=== PATIENT | male | born 1955 | race Caucasian/White ===

== ENCOUNTER 2016-05-12 12:57 | Emergency (ER) | payer MEDICARE ==
[~2016-05-12] VITALS: Ht 182.9 cm; Wt 145.5 kg
[~2016-05-12 12:57] MED LIST: MORP20SO PO; NAPR-576 PO
[2016-05-12 13:00] VITALS: BP 185/100; PULSE 89; RESP 18; TEMP 98.3; O2SAT 98
[2016-05-12] MEDS ORDERED: OXYC15TA PO (13:30)
[2016-05-12] MEDS ORDERED: QUET1TAB8 PO (13:30)
[2016-05-12] MEDS ORDERED: LORA1TAB12 PO (13:30)
[2016-05-12] MEDS ORDERED: HYDR50CA PO (13:30)
[2016-05-12] MEDS ORDERED: DOXE75CA2 PO (13:30)
[2016-05-12] MEDS ORDERED: LOSA100T PO (13:30)
--- NOTE | 2016-05-12 13:38 | PD ---
HPI Chief Complaint: Anxiety Time Seen by Provider: 13:38 Travel History International Travel<30 days: No Contact w/Intl Traveler<30days: No Traveled to known affect area: No History of Present Illness HPI 60-year-old male with a history of hypertension, chronic low back pain, anxiety and depression presents to the emergency department for evaluation of anxiety. The patient has had worsening anxiety for the past 6 months. States that he was seen by his PCP one month ago and referred to a psychiatrist, he was also prescribed Ativan 1 mg daily as needed for anxiety and Seroquel. States that he saw the psychiatrist 3 weeks ago and was started on doxepin, Vistaril and continued his Ativan and Seroquel. States that he saw the psychiatrist again today for evaluation of his worsening anxiety and was prescribed increased doses of his doxepin, Vistaril and Seroquel. The patient has not yet taken these increased doses of his medication. He is here because of his worsening anxiety, stating that he is unable to sleep for the past 24 hours. States he feels as though his skin is crawling due to his anxiety. He denies any chest pain, shortness of breath, abdominal pain, nausea, vomiting, diarrhea. Denies suicidal or homicidal ideations. No other complaints. PFSH Past Medical History Hx Anticoagulant Therapy: No Anxiety: Yes Depression: Yes Cancer: Yes (STOMACH ) Cerebrovascular Accident: Yes (CVA) Diminished Hearing: No Hypertension: Yes Insomnia: Yes Immunizations Current: Yes Tetanus Vaccination: > 5 Years Influenza Vaccination: No ?: Not Past Surgical History Abdominal Surgery: Yes (STOMACH CANCER--PORTION OF STOMACH REMOVED 05/30) Social History Alcohol Use: Yes (occasionally ) Tobacco Use: No (quit 10 years ago, smoked for 30 years) Substance Use: No Allergies-Medications (Allergen,Severity, Reaction): Coded Allergies: No Known Allergies (Unverified , 05/12/16) Reported Meds & Prescriptions Reported Meds & Active Scripts Active Reported Hydroxyzine Pamoate 50 Mg Cap 50 Mg PO HS Oxycodone (Oxycodone HCl) 15 Mg Tab 15 Mg PO Q6H PRN Losartan (Losartan Potassium) 100 Mg Tab 100 Mg PO DAILY Doxepin (Doxepin HCl) 75 Mg Cap 75 Mg PO DAILY Quetiapine (Quetiapine Fumarate) 100 Mg Tab 150 Mg PO DAILY Lorazepam 1 Mg Tab 1 Mg PO DAILY PRN Review of Systems Except as stated in HPI: all other systems reviewed are Neg Physical Exam Narrative GENERAL: Well-nourished and well-developed pleasant male patient in no acute distress who is nontoxic appearing. SKIN: Warm and dry. HEAD: Normocephalic and atraumatic. EYES: No injection, drainage, or hyphema noted. PERRLA. EOMI. ENT: No nasal drainage noted. Oropharynx is clear. NECK: Supple and the trachea is midline. CARDIOVASCULAR: Regular rate and rhythm. RESPIRATORY: Breath sounds are equal bilaterally with no accessory muscle use, wheezing, rhonchi, or crackles. GASTROINTESTINAL: Abdomen is soft, non-tender, and nondistended. MUSCULOSKELETAL: No obvious deformities, swelling, cyanosis, or ecchymosis is present throughout the upper and lower extremities. Patient has full range of motion without any signs of neurovascular compromise. NEUROLOGICAL: Awake, alert, and oriented. Normal speech and gait. Cranial nerves are grossly intact. Data Data Last Documented VS Vital Signs Date Time Temp Pulse Resp B/P Pulse Ox O2 Delivery O2 Flow Rate FiO2 05/12/16 14:20 90 22 176/108 97 Room Air 05/12/16 13:00 98.3 Orders Basic Metabolic Panel (Bmp) (05/12/16 13:36) Complete Blood Count With Diff (05/12/16 13:36) Iv Access Insert/Monitor (05/12/16 13:36) Ecg Monitoring (05/12/16 13:36) Oximetry (05/12/16 13:36) Lorazepam Inj (Ativan Inj) (05/12/16 13:45) Thyroid Stimulating Hormone (05/12/16 13:36) Lorazepam Inj (Ativan Inj) (05/12/16 14:00) Lorazepam Inj (Ativan Inj) (05/12/16 14:45) Labs Laboratory Tests Test 05/12/16 05/12/16 13:45 14:30 White Blood Count 9.4 TH/MM3 Red Blood Count 5.92 MIL/MM3 Hemoglobin 15.3 GM/DL Hematocrit 47.0 % Mean Corpuscular Volume 79.3 FL Mean Corpuscular Hemoglobin 25.9 PG Mean Corpuscular Hemoglobin 32.6 % Concent Red Cell Distribution Width 16.7 % Platelet Count 231 TH/MM3 Mean Platelet Volume 8.9 FL Neutrophils (%) (Auto) 68.4 % Lymphocytes (%) (Auto) 16.7 % Monocytes (%) (Auto) 7.6 % Eosinophils (%) (Auto) 6.5 % Basophils (%) (Auto) 0.8 % Neutrophils # (Auto) 6.4 TH/MM3 Lymphocytes # (Auto) 1.6 TH/MM3 Monocytes # (Auto) 0.7 TH/MM3 Eosinophils # (Auto) 0.6 TH/MM3 Basophils # (Auto) 0.1 TH/MM3 CBC Comment DIFF FINAL Differential Comment Sodium Level 139 MEQ/L Potassium Level 4.0 MEQ/L Chloride Level 103 MEQ/L Carbon Dioxide Level 30.3 MEQ/L Anion Gap 6 MEQ/L Blood Urea Nitrogen 9 MG/DL Creatinine 1.09 MG/DL Estimat Glomerular Filtration 69 ML/MIN Rate Random Glucose 111 MG/DL Calcium Level 9.0 MG/DL Thyroid Stimulating Hormone 0.962 uIU/ML [facility] Medical Decision Making Medical Screen Exam Complete: Yes Emergency Medical Condition: Yes Differential Diagnosis Anxiety versus depression versus hyperthyroidism versus electrolyte abnormality Narrative Course 60-year-old male presents to the emergency department for evaluation of worsening anxiety for the past 6 months. Patient is afebrile. He is hypertensive with a blood pressure 185/100. Anxiety likely contributing to this elevated blood pressure. Patient has no medical complaints. Physical examination is unremarkable. IV access is obtained, labs were drawn and sent. Patient is administered Ativan 1 mg. Patient still complaining of anxiety after initial dose and given another 1 mg of Ativan. CBC is unremarkable. BMP is unremarkable. TSH is within normal limits. Labs are all reassuring. Patient has remained stable and without complaint. He will be discharged to follow-up with his PCP and psychiatrist. I discussed the case with my attending physician Dr. Rocha who is aware of the patients history, physical examination findings, and treatment plan. Diagnosis Primary Impression: Anxiety Referrals: Primary Care Physician Patient Instructions: Anxiety (ED), General Instructions Additional Instructions: Follow-up with your Primary Care Physician and psychiatrist. Return to the ED for any acute worsening of symptoms. Med/Other Pt SpecificInfo: No Change to Meds Disposition: 01 DISCHARGE HOME Condition: Stable Jeannine Baltazar May 12, 2016 13:38
[2016-05-12] MEDS ORDERED: LORazepam 2 MG/ML VIAL IV PUSH ONE ×2 (13:45→14:45)
[2016-05-12 13:57] LABS: AUTOMATED NEUTROPHIL # 6.4 TH/MM3 (1.8-7.7); BASOPHIL # 0.1 TH/MM3 (0-0.2); BASOPHIL % 0.8 % (0.0-2.0); EOSINOPHIL # 0.6 TH/MM3 (0-0.4); EOSINOPHIL % 6.5 % (0.0-4.0); HEMO FLAGS DIFF FINAL; LYMPH % 16.7 % (9.0-44.0); LYMPHOCYTE # 1.6 TH/MM3 (1.0-4.8); MEAN CELL VOLUME 79.3 FL (80.0-100.0); MEAN CORPUSCULAR HEMOGLOBIN 25.9 PG (27.0-34.0); MEAN CORPUSCULAR HGB CONC 32.6 % (32.0-36.0); MONO % 7.6 % (0.0-8.0); NEUT % 68.4 % (16.0-70.0); PLATELET COUNT 231 TH/MM3 (150-450); RED BLOOD COUNT 5.92 MIL/MM3 (4.50-5.90); RED CELL DISTRIBUTION WIDTH 16.7 % (11.6-17.2); WHITE BLOOD COUNT 9.4 TH/MM3 (4.0-11.0)
[2016-05-12] MEDS ORDERED: LORazepam 2 MG/ML VIAL IM ONE (14:00)
[2016-05-12 14:19] VITALS: O2SAT 97
[2016-05-12 14:20] VITALS: BP 176/108; PULSE 90; RESP 22; O2SAT 97
--- NOTE | 2016-05-12 15:13 | PD ---
Physical Exam Narrative I, Dr. Rocha, have reviewed the advance practice practitioner's documentation and am in agreement, met with the patient face to face, made the diagnosis, and the medical decision making was done by me. *My assessment and Findings: Anxiety 60yo M with chronic anxiety and HTN here stating he is having an acute anxiety attack. Pt went to his psychiatrist today and had his medications increased. However, feels that he needs something intravenous right now. Labs reviewed, no leukocytosis. TSH 0.962. Pt given ativan 1mg IM and 1mg IV and feels better. Return precautions given. Data Data Last Documented VS Vital Signs Date Time Temp Pulse Resp B/P Pulse Ox O2 Delivery O2 Flow Rate FiO2 05/12/16 16:00 91 22 165/98 97 Room Air 05/12/16 13:00 98.3 Orders Basic Metabolic Panel (Bmp) (05/12/16 13:36) Complete Blood Count With Diff (05/12/16 13:36) Iv Access Insert/Monitor (05/12/16 13:36) Ecg Monitoring (05/12/16 13:36) Oximetry (05/12/16 13:36) Lorazepam Inj (Ativan Inj) (05/12/16 13:45) Thyroid Stimulating Hormone (05/12/16 13:36) Lorazepam Inj (Ativan Inj) (05/12/16 14:00) Lorazepam Inj (Ativan Inj) (05/12/16 14:45) Labs Laboratory Tests Test 05/12/16 05/12/16 13:45 14:30 White Blood Count 9.4 TH/MM3 Red Blood Count 5.92 MIL/MM3 Hemoglobin 15.3 GM/DL Hematocrit 47.0 % Mean Corpuscular Volume 79.3 FL Mean Corpuscular Hemoglobin 25.9 PG Mean Corpuscular Hemoglobin 32.6 % Concent Red Cell Distribution Width 16.7 % Platelet Count 231 TH/MM3 Mean Platelet Volume 8.9 FL Neutrophils (%) (Auto) 68.4 % Lymphocytes (%) (Auto) 16.7 % Monocytes (%) (Auto) 7.6 % Eosinophils (%) (Auto) 6.5 % Basophils (%) (Auto) 0.8 % Neutrophils # (Auto) 6.4 TH/MM3 Lymphocytes # (Auto) 1.6 TH/MM3 Monocytes # (Auto) 0.7 TH/MM3 Eosinophils # (Auto) 0.6 TH/MM3 Basophils # (Auto) 0.1 TH/MM3 CBC Comment DIFF FINAL Differential Comment Sodium Level 139 MEQ/L Potassium Level 4.0 MEQ/L Chloride Level 103 MEQ/L Carbon Dioxide Level 30.3 MEQ/L Anion Gap 6 MEQ/L Blood Urea Nitrogen 9 MG/DL Creatinine 1.09 MG/DL Estimat Glomerular Filtration 69 ML/MIN Rate Random Glucose 111 MG/DL Calcium Level 9.0 MG/DL Thyroid Stimulating Hormone 0.962 uIU/ML 3rd Gen MDM Supervised Visit with [facility]: Yes Diagnosis Primary Impression: Anxiety Referrals: Primary Care Physician Patient Instructions: General Instructions, Anxiety (ED) Additional Instruction: Follow-up with your Primary Care Physician and psychiatrist. Return to the ED for any acute worsening of symptoms. Disposition: 01 DISCHARGE HOME Condition: Stable Julia Rocha May 12, 2016 15:13
[2016-05-12 15:29] LABS: BICARBONATE 30.3 MEQ/L (21.0-32.0)
[2016-05-12 16:00] VITALS: BP 165/98; PULSE 91; RESP 22; O2SAT 97
== END 2016-05-12 16:00 | disposition home or self-care (01) ==
LOC: NEPE 12:57
DX: F41.8 Other specified anxiety disorders (principal); I10 Essential (primary) hypertension; Z86.73 Personal history of transient ischemic attack (TIA), and cerebral infarction without residual deficits
CPT/HCPCS: 80048; 84443; 85025; 99283; J2060

== ENCOUNTER 2016-07-02 18:50 | Emergency (ER) | payer MEDICARE ==
[~2016-07-02] VITALS: Ht 182.9 cm; Wt 144.9 kg
[~2016-07-02 18:50] MED LIST changes: +DOXE75CA2 PO; +HYDR50CA PO; +LORA1TAB12 PO; +LOSA100T PO; -MORP20SO PO; -NAPR-576 PO; +OXYC15TA PO; +QUET1TAB8 PO
[2016-07-02 18:59] VITALS: BP 126/86; PULSE 87; RESP 16; TEMP 97.9; O2SAT 97
[2016-07-02] MEDS ORDERED: TAMS5CAP PO (19:12)
[2016-07-02] MEDS ORDERED: SERO25TA PO (19:12)
[2016-07-02] MEDS ORDERED: ZOLO50TA PO (19:13)
[2016-07-02 19:25] VITALS: BP 148/85; PULSE 90; O2SAT 99
[2016-07-02] MEDS ORDERED: SODIUM CHLOR 0.9% 1000 ML INJ 1,000 ML IV SCH ×2 (19:29→20:30)
[2016-07-02] MEDS ORDERED: SODIUM CHLORIDE 0.9% FLUSH 10 ML FLUSH IV FLUSH PRN (19:30)
[2016-07-02] MEDS ORDERED: ONDANSETRON HCL 4 MG/2 ML VIAL IVP ONE (19:30)
--- NOTE | 2016-07-02 19:36 | PD ---
HPI Chief Complaint: GI Complaint Time Seen by Provider: 19:29 Travel History International Travel<30 days: No Contact w/Intl Traveler<30days: No Traveled to known affect area: No History of Present Illness HPI The patient is a 60-year-old male who complains of generalized weakness and diarrhea for 5 days. He denies any nausea or vomiting or fever. He denies any blood in the diarrhea. He denies any abdominal pain. He has had a history of stomach cancer 5 years ago and also had a small bowel obstruction in which they removed some small intestine. He also has a history of anxiety and depression and takes oxycodone chronically for chronic pain. PFSH Past Medical History Hx Anticoagulant Therapy: No Anxiety: Yes Depression: Yes Cancer: Yes (STOMACH ) Cerebrovascular Accident: Yes (CVA) Diminished Hearing: No Hypertension: Yes Insomnia: Yes Immunizations Current: Yes Tetanus Vaccination: Never Vaccinated Past Surgical History Abdominal Surgery: Yes (STOMACH CANCER--PORTION OF STOMACH REMOVED 05/30) Other Surgery: Yes (spinal stenosis august 2015) Social History Alcohol Use: Yes (occasionally ) Tobacco Use: No (quit 10 years ago, smoked for 30 years) Substance Use: No Allergies-Medications (Allergen,Severity, Reaction): Coded Allergies: No Known Allergies (Unverified , 07/02/16) Reported Meds & Prescriptions Reported Meds & Active Scripts Active Reported Zoloft (Sertraline HCl) 50 Mg Tab 50 Mg PO DAILY Flomax (Tamsulosin HCl) 0.4 Mg Cap 0.4 Mg PO HS Seroquel (Quetiapine Fumarate) 25 Mg Tab 25 Mg PO HS Oxycodone (Oxycodone HCl) 15 Mg Tab 15 Mg PO Q6H PRN Losartan (Losartan Potassium) 100 Mg Tab 100 Mg PO DAILY Lorazepam 1 Mg Tab 1 Mg PO DAILY PRN Review of Systems Except as stated in HPI: all other systems reviewed are Neg Physical Exam Narrative GENERAL: The patient is alert, moderately dehydrated appearing, oriented 3 in slight apparent distress with his nausea. His vital signs show blood pressure 126/86 but otherwise normal. SKIN: Focused skin assessment warm/dry. HEAD: Atraumatic. Normocephalic. EYES: Pupils equal and round. No scleral icterus. No injection or drainage. ENT: No nasal bleeding or discharge. Mucous membranes pink and moist. NECK: Trachea midline. No JVD. CARDIOVASCULAR: Regular rate and rhythm. No murmur appreciated. RESPIRATORY: No accessory muscle use. Clear to auscultation. Breath sounds equal bilaterally. GASTROINTESTINAL: Abdomen soft, non-tender, nondistended. Hepatic and splenic margins not palpable. No guarding or rebound is present. MUSCULOSKELETAL: No obvious deformities. No clubbing. No cyanosis. No edema. NEUROLOGICAL: Awake and alert. No obvious cranial nerve deficits. Motor grossly within normal limits. Normal speech. PSYCHIATRIC: Appropriate mood and affect; insight and judgment normal. Data Data Last Documented VS Vital Signs Date Time Temp Pulse Resp B/P Pulse Ox O2 Delivery O2 Flow Rate FiO2 07/02/16 21:00 84 152/87 100 07/02/16 19:25 Room Air 07/02/16 18:59 97.9 16 Orders Complete Blood Count With Diff (07/02/16 19:29) Comprehensive Metabolic Panel (07/02/16 19:29) Lipase (07/02/16 19:29) Urinalysis - C+S If Indicated (07/02/16 19:29) Iv Access Insert/Monitor (07/02/16 19:29) Ecg Monitoring (07/02/16 19:29) Oximetry (07/02/16 19:29) Sodium Chlor 0.9% 1000 Ml Inj (Ns 1000 M (07/02/16 19:29) Sodium Chloride 0.9% Flush (Ns Flush) (07/02/16 19:30) Urine Culture (07/02/16 19:56) Sodium Chlor 0.9% 1000 Ml Inj (Ns 1000 M (07/02/16 20:30) Labs Laboratory Tests Test 07/02/16 07/02/16 19:56 19:58 Urine Color YELLOW Urine Turbidity CLEAR Urine pH 6.0 Urine Specific [place] 1.030 Urine Protein 30 mg/dL Urine Glucose (UA) NEG mg/dL Urine Ketones TRACE mg/dL Urine Occult Blood TRACE Urine Nitrite NEG Urine Bilirubin NEG Urine Leukocyte Esterase TRACE Urine RBC 0-3 /hpf Urine WBC 9-14 /hpf Urine Squamous Epithelial 0-5 /hpf Cells Urine Bacteria RARE /hpf Urine Mucus MANY /lpf Microscopic Urinalysis Comment CULTURE INDICATED White Blood Count 9.5 TH/MM3 Red Blood Count 6.59 MIL/MM3 Hemoglobin 17.2 GM/DL Hematocrit 54.0 % Mean Corpuscular Volume 81.9 FL Mean Corpuscular Hemoglobin 26.1 PG Mean Corpuscular Hemoglobin 31.9 % Concent Red Cell Distribution Width 14.6 % Platelet Count 269 TH/MM3 Mean Platelet Volume 9.2 FL Neutrophils (%) (Auto) 70.3 % Lymphocytes (%) (Auto) 15.0 % Monocytes (%) (Auto) 9.4 % Eosinophils (%) (Auto) 2.1 % Basophils (%) (Auto) 3.2 % Neutrophils # (Auto) 6.7 TH/MM3 Lymphocytes # (Auto) 1.4 TH/MM3 Monocytes # (Auto) 0.9 TH/MM3 Eosinophils # (Auto) 0.2 TH/MM3 Basophils # (Auto) 0.3 TH/MM3 CBC Comment DIFF FINAL Differential Comment Sodium Level 139 MEQ/L Potassium Level 3.6 MEQ/L Chloride Level 104 MEQ/L Carbon Dioxide Level 24.5 MEQ/L Anion Gap 11 MEQ/L Blood Urea Nitrogen 16 MG/DL Creatinine 1.10 MG/DL Estimat Glomerular Filtration 68 ML/MIN Rate Random Glucose 117 MG/DL Calcium Level 8.5 MG/DL Total Bilirubin 0.6 MG/DL Aspartate Amino Transf 16 U/L (AST/SGOT) Alanine Aminotransferase 40 U/L (ALT/SGPT) Alkaline Phosphatase 84 U/L Total Protein 8.4 GM/DL Albumin 3.7 GM/DL Lipase 75 U/L MDM Medical Decision Making Medical Screen Exam Complete: Yes Emergency Medical Condition: Yes Medical Record Reviewed: Yes Interpretation(s) The CBC shows a white count of 9500 with a hemoglobin of 17.2 and hematocrit of 54.0. The urine shows specific gravity 1.030 with trace ketones, trace occult blood and trace leukocyte esterase with 9-14 white cells and rare bacteria and culture is indicated. The complete metabolic profile shows a total protein of 8.4 but is otherwise normal. The lipase is normal. Differential Diagnosis Gastroenteritis, partial small bowel obstruction, electrolyte disorder, dehydration, anemia, colitis, bacterial enteritis Narrative Course The patient appears to have gastroenteritis with moderate dehydration. Dehydration as manifested by the hemoconcentration with a hemoglobin/hematocrit on the CBC and in the urine by the high specific gravity and ketones in the urine. It is now 0928 and the patient has successfully been drinking Gatorade and wants to go home. He states he feels much better now and the weakness has resolved. Impression: Gastroenteritis, moderate dehydration Diagnosis Primary Impression: Gastroenteritis Additional Impression: Mild dehydration Additional Instructions: The Zofran is one tablet every 6 hours as needed for nausea. As we discussed, do not purchase the medicine unless you get nauseated. Follow-up with her primary care physician next week. Med/Other Pt SpecificInfo: Prescription(s) given Scripts Ondansetron (Zofran)4 Mg Tab4 Mg PO Q6HR PRN (NAUSEA OR VOMITING) #12 TAB Ref 0 Prov:Og Momin MD 07/02/16 Disposition: 01 DISCHARGE HOME Condition: Stable Og Momin MD Jul 02, 2016 19:36
[2016-07-02 20:04] LABS: AUTOMATED NEUTROPHIL # 6.7 TH/MM3 (1.8-7.7); BASOPHIL # 0.3 TH/MM3 (0-0.2); BASOPHIL % 3.2 % (0.0-2.0); EOSINOPHIL # 0.2 TH/MM3 (0-0.4); EOSINOPHIL % 2.1 % (0.0-4.0); HEMO FLAGS DIFF FINAL; LYMPHOCYTE # 1.4 TH/MM3 (1.0-4.8); MEAN CELL VOLUME 81.9 FL (80.0-100.0); MEAN CORPUSCULAR HEMOGLOBIN 26.1 PG (27.0-34.0); MEAN CORPUSCULAR HGB CONC 31.9 % (32.0-36.0); MONO % 9.4 % (0.0-8.0); NEUT % 70.3 % (16.0-70.0); PLATELET COUNT 269 TH/MM3 (150-450); RED BLOOD COUNT 6.59 MIL/MM3 (4.50-5.90); RED CELL DISTRIBUTION WIDTH 14.6 % (11.6-17.2); WHITE BLOOD COUNT 9.5 TH/MM3 (4.0-11.0)
[2016-07-02 20:06] LABS: BLOOD, URINE TRACE (NEG); GLUCOSE,URINE NEG (NEG); KETONE, URINE TRACE mg/dL (NEG); NITRITE,URINE NEG (NEG)
[2016-07-02 20:09] LABS: URINE COLOR YELLOW (YELLW/STRAW)
[2016-07-02 20:10] LABS: MUCUS URINE MANY /lpf (OCC)
[2016-07-02 20:11] LABS: RBC, URINE 0-3 /hpf (0-3)
[2016-07-02 20:12] LABS: BACTERIA, URINE RARE /hpf; COMMENT (UR) CULTURE INDICATED; CULTURE IF INDICATED CULTURE INDICATED; SQUAMOUS EPITHELIAL CELL URINE 0-5 /hpf (0-5)
[2016-07-02 20:15] LABS: CHLORIDE 104 MEQ/L (98-107); POTASSIUM 3.6 MEQ/L (3.5-5.1); SODIUM (NA) 139 MEQ/L (136-145)
[2016-07-02 20:21] LABS: ANION GAP 11 MEQ/L (5-15); BICARBONATE 24.5 MEQ/L (21.0-32.0); BLOOD UREA NITROGEN 16 MG/DL (7-18)
[2016-07-02 20:23] LABS: ALT (GPT) 40 U/L (12-78); AST (GOT) 16 U/L (15-37)
[2016-07-02 20:24] LABS: GLOMERULAR FILTRATION RATE 68 ML/MIN (>89)
[2016-07-02 20:25] LABS: TOTAL BILIRUBIN ADULT 0.6 MG/DL (0.2-1.0)
[2016-07-02 20:26] LABS: ALKALINE PHOSPHATASE 84 U/L (45-117)
[2016-07-02 21:00] VITALS: BP 152/87; PULSE 84; O2SAT 100
[2016-07-02] MEDS ORDERED: ZOFR4TAB PO (21:30)
== END 2016-07-02 21:42 | disposition home or self-care (01) ==
LOC: PHED 18:50
DX: K52.9 Noninfective gastroenteritis and colitis, unspecified (principal); E86.0 Dehydration; I10 Essential (primary) hypertension; F41.8 Other specified anxiety disorders
CPT/HCPCS: 80053; 81001; 83690; 85025; 87086; 96360; 99284; J7030

== ENCOUNTER 2016-08-04 17:40 | Emergency (ER) | payer MEDICARE ==
[~2016-08-04] VITALS: Ht 182.9 cm; Wt 146.6 kg
[~2016-08-04 17:40] MED LIST changes: -DOXE75CA2 PO; -HYDR50CA PO; -QUET1TAB8 PO; +SERO25TA PO; +TAMS5CAP PO; +ZOFR4TAB PO; +ZOLO50TA PO
[2016-08-04 17:43] VITALS: PULSE 87; RESP 16; TEMP 97.8; O2SAT 98
[2016-08-04 17:50] VITALS: BP 196/95
[2016-08-04] MEDS ORDERED: SODIUM CHLOR 0.9% 1000 ML INJ 1,000 ML IV ONE (18:30)
[2016-08-04 18:41] VITALS: BP 174/110; PULSE 88; RESP 16; O2SAT 98
[2016-08-04 18:43] LABS: BLOOD, URINE TRACE (NEG); GLUCOSE,URINE NEG (NEG); KETONE, URINE NEG (NEG); NITRITE,URINE NEG (NEG)
[2016-08-04 18:45] LABS: AUTOMATED NEUTROPHIL # 6.8 TH/MM3 (1.8-7.7); BASOPHIL # 0.1 TH/MM3 (0-0.2); BASOPHIL % 0.6 % (0.0-2.0); EOSINOPHIL % 10.1 % (0.0-4.0); HEMATOCRIT 48.1 % (39.0-51.0); HEMO FLAGS DIFF FINAL; LYMPH % 13.3 % (9.0-44.0); LYMPHOCYTE # 1.4 TH/MM3 (1.0-4.8); MEAN CELL VOLUME 81.9 FL (80.0-100.0); MEAN CORPUSCULAR HEMOGLOBIN 26.4 PG (27.0-34.0); MEAN CORPUSCULAR HGB CONC 32.2 % (32.0-36.0); MONO % 8.4 % (0.0-8.0); NEUT % 67.6 % (16.0-70.0); PLATELET COUNT 217 TH/MM3 (150-450); RED BLOOD COUNT 5.87 MIL/MM3 (4.50-5.90); RED CELL DISTRIBUTION WIDTH 15.2 % (11.6-17.2); WHITE BLOOD COUNT 10.2 TH/MM3 (4.0-11.0)
[2016-08-04 18:49] LABS: CHLORIDE 104 MEQ/L (98-107); POTASSIUM 3.4 MEQ/L (3.5-5.1); SODIUM (NA) 140 MEQ/L (136-145)
[2016-08-04] MEDS ORDERED: DIATRIZOATE MEGLUM/DIATRIZOATE SOD 9 ML CUP ONE (18:52)
[2016-08-04 18:53] LABS: ANION GAP 7 MEQ/L (5-15); BICARBONATE 29.5 MEQ/L (21.0-32.0); BLOOD UREA NITROGEN 9 MG/DL (7-18)
[2016-08-04 18:56] LABS: ALT (GPT) 23 U/L (12-78); AST (GOT) 13 U/L (15-37); GLOMERULAR FILTRATION RATE 81 ML/MIN (>89)
[2016-08-04 18:57] LABS: TOTAL BILIRUBIN ADULT 0.3 MG/DL (0.2-1.0)
[2016-08-04 18:58] LABS: ALKALINE PHOSPHATASE 99 U/L (45-117)
[2016-08-04 18:58] LABS: URINE COLOR YELLOW (YELLW/STRAW)
[2016-08-04 18:59] LABS: MUCUS URINE OCC /lpf (OCC); URIC ACID CRYSTALS, URINE MANY /hpf
[2016-08-04 19:00] VITALS: BP 183/98; PULSE 85; RESP 18; O2SAT 98
[2016-08-04 19:00] LABS: HYALINE CAST, URINE 0-2 /lpf (RARE)
[2016-08-04 19:01] LABS: COMMENT (UR) CULT NOT INDICATED; CULTURE IF INDICATED CULT NOT INDICATED; RBC, URINE 0-3 /hpf (0-3); SQUAMOUS EPITHELIAL CELL URINE 0-5 /hpf (0-5)
[2016-08-04] MEDS ORDERED: ONDANSETRON HCL 4 MG/2 ML VIAL IV PUSH ONE (19:15)
[2016-08-04] MEDS ORDERED: HYDROmorphone HCL PF 1 MG/ML VIAL IV PUSH ONE (19:15)
[2016-08-04] MEDS ORDERED: POTASSIUM CHLORIDE 20 MEQ CONTROLLED RELEASE TAB PO ONE (19:30)
--- NOTE | 2016-08-04 19:31 | PD ---
HPI Chief Complaint: GI Complaint Time Seen by Provider: 18:11 Travel History International Travel<30 days: No Contact w/Intl Traveler<30days: No Traveled to known affect area: No History of Present Illness HPI This 60-year-old male says he been having diarrhea last 3 or 4 days. He's having crampy migratory abdominal pain. He says that 3 movements today. He says his stools are foamy and very watery. 6 years ago he had surgery for stomach cancer. He goes for periodic endoscopies and is scheduled for an endoscopy with Dr. Winston on Wednesday. He has not been on any antibiotics recently. One month ago he had some diarrhea and came to the emergency department. Lab work was done and was diagnosed with dehydration. He was given some fluids and Zofran and he seemed to get better for a couple of weeks. He feels like he is having symptoms again now. He has a history of partial colon resection for diverticulitis over 20 years ago. He has a history of spinal fusion. He is on chronic pain medication. He has problems with chronic reflux because he says his lower esophageal sphincter is not functional PFSH Past Medical History Hx Anticoagulant Therapy: No Anxiety: Yes Depression: Yes Cancer: Yes (STOMACH ) Cardiovascular Problems: Yes (HTN) Cerebrovascular Accident: Yes (CVA) Diabetes: No Diminished Hearing: No Hypertension: Yes Insomnia: Yes Immunizations Current: Yes Influenza Vaccination: No Past Surgical History Abdominal Surgery: Yes (STOMACH CANCER--PORTION OF STOMACH REMOVED 05/30) Other Surgery: Yes (spinal stenosis august 2015) Social History Alcohol Use: Yes (occasionally ) Tobacco Use: No (quit 10 years ago, smoked for 30 years) Substance Use: No Allergies-Medications (Allergen,Severity, Reaction): Coded Allergies: No Known Allergies (Unverified , 08/04/16) Reported Meds & Prescriptions Reported Meds & Active Scripts Active Reported Zoloft (Sertraline HCl) 50 Mg Tab 50 Mg PO DAILY Flomax (Tamsulosin HCl) 0.4 Mg Cap 0.4 Mg PO HS Seroquel (Quetiapine Fumarate) 25 Mg Tab 25 Mg PO HS Oxycodone (Oxycodone HCl) 15 Mg Tab 15 Mg PO Q6H PRN Losartan (Losartan Potassium) 100 Mg Tab 100 Mg PO DAILY Lorazepam 1 Mg Tab 2 Mg PO DAILY PRN Review of Systems General / Constitutional: No: Fever, Chills Eyes: No: Diploplia, Blurred Vision HENT: No: Headaches, Vertigo Cardiovascular: No: Chest Pain or Discomfort, Palpitations Respiratory: No: Cough, Shortness of Breath Gastrointestinal: Positive: Diarrhea, Abdominal Pain, Loss of Appetite, No: Vomiting Genitourinary: No: Urgency, Frequency Physical Exam Narrative GENERAL: Well-developed male SKIN: Focused skin assessment warm/dry. HEAD: Atraumatic. Normocephalic. EYES: Pupils equal and round. No scleral icterus. No injection or drainage. ENT: No nasal bleeding or discharge. Mucous membranes pink and moist. NECK: Trachea midline. No JVD. CARDIOVASCULAR: Regular rate and rhythm. No murmur appreciated. RESPIRATORY: No accessory muscle use. Clear to auscultation. Breath sounds equal bilaterally. GASTROINTESTINAL: Abdomen soft, non-tender, nondistended. Hepatic and splenic margins not palpable. MUSCULOSKELETAL: No obvious deformities. No clubbing. No cyanosis. No edema. NEUROLOGICAL: Awake and alert. No obvious cranial nerve deficits. Motor grossly within normal limits. Normal speech. PSYCHIATRIC: Appropriate mood and affect; insight and judgment normal. Data Data Last Documented VS Vital Signs Date Time Temp Pulse Resp B/P Pulse Ox O2 Delivery O2 Flow Rate FiO2 08/04/16 20:30 77 18 195/99 99 Room Air 08/04/16 17:43 97.8 Orders Complete Blood Count With Diff (08/04/16 18:21) Comprehensive Metabolic Panel (08/04/16 18:21) Urinalysis - C+S If Indicated (08/04/16 18:21) Rotavirus Ag Detection (Stool) (08/04/16 18:21) Enteric Path (Stool) (08/04/16 18:21) C Diff Toxin Pcr (08/04/16 18:21) Ct Abd/Pel W Iv Contrast(Rout) (08/04/16 18:21) Sodium Chlor 0.9% 1000 Ml Inj (Ns 1000 M (08/04/16 18:30) Diatrizoate Liq ( Gastroview Liq) (08/04/16 18:52) Ondansetron Inj (Zofran Inj) (08/04/16 19:15) Hydromorphone Pf Inj (Dilaudid Pf Inj) (08/04/16 19:15) Potassium Chloride (Kcl) (08/04/16 19:30) Iohexol 350 Inj (Omnipaque 350 Inj) (08/04/16 20:39) Labs Laboratory Tests Test 08/04/16 08/04/16 18:20 18:30 White Blood Count 10.2 TH/MM3 Red Blood Count 5.87 MIL/MM3 Hemoglobin 15.5 GM/DL Hematocrit 48.1 % Mean Corpuscular Volume 81.9 FL Mean Corpuscular Hemoglobin 26.4 PG Mean Corpuscular Hemoglobin 32.2 % Concent Red Cell Distribution Width 15.2 % Platelet Count 217 TH/MM3 Mean Platelet Volume 9.3 FL Neutrophils (%) (Auto) 67.6 % Lymphocytes (%) (Auto) 13.3 % Monocytes (%) (Auto) 8.4 % Eosinophils (%) (Auto) 10.1 % Basophils (%) (Auto) 0.6 % Neutrophils # (Auto) 6.8 TH/MM3 Lymphocytes # (Auto) 1.4 TH/MM3 Monocytes # (Auto) 0.9 TH/MM3 Eosinophils # (Auto) 1.0 TH/MM3 Basophils # (Auto) 0.1 TH/MM3 CBC Comment DIFF FINAL Differential Comment Sodium Level 140 MEQ/L Potassium Level 3.4 MEQ/L Chloride Level 104 MEQ/L Carbon Dioxide Level 29.5 MEQ/L Anion Gap 7 MEQ/L Blood Urea Nitrogen 9 MG/DL Creatinine 0.95 MG/DL Estimat Glomerular Filtration 81 ML/MIN Rate Random Glucose 113 MG/DL Calcium Level 8.8 MG/DL Total Bilirubin 0.3 MG/DL Aspartate Amino Transf 13 U/L (AST/SGOT) Alanine Aminotransferase 23 U/L (ALT/SGPT) Alkaline Phosphatase 99 U/L Total Protein 7.5 GM/DL Albumin 3.2 GM/DL Urine Color YELLOW Urine Turbidity CLEAR Urine pH 5.0 Urine Specific [place] 1.018 Urine Protein NEG mg/dL Urine Glucose (UA) NEG mg/dL Urine Ketones NEG mg/dL Urine Occult Blood TRACE Urine Nitrite NEG Urine Bilirubin NEG Urine Leukocyte Esterase NEG Urine RBC 0-3 /hpf Urine Squamous Epithelial 0-5 /hpf Cells Urine Uric Acid Crystals MANY /hpf Urine Hyaline Casts 0-2 /lpf Urine Mucus OCC /lpf Microscopic Urinalysis Comment CULT NOT INDICATED MDM Medical Decision Making Medical Screen Exam Complete: Yes Emergency Medical Condition: Yes Medical Record Reviewed: Yes Differential Diagnosis Differential includes enteritis, colitis, diverticulitis Narrative Course White count is normal. I requested stool studies but he was unable to produce stool. CT scan shows some focal thickening of the colon consistent with colitis. He'll be started on Flagyl. She has an appointment Wednesday with Dr. Winston and he should follow-up with him Diagnosis Primary Impression: Colitis Scripts Metronidazole (Flagyl)500 Mg Pso738 Mg PO TID 10 Days Ref 0 Prov:Terrell Yang MD 08/04/16 Ondansetron (Zofran)4 Mg Tab4 Mg PO Q6HR PRN (NAUSEA OR VOMITING) #12 TAB Ref 0 Prov:Terrell Yang MD 08/04/16 Disposition: 01 DISCHARGE HOME Condition: Stable Terrell Yang MD August 04, 2016 19:31
[2016-08-04 20:30] VITALS: BP 195/99; PULSE 77; RESP 18; O2SAT 99
[2016-08-04] MEDS ORDERED: IOHEXOL 350 MG/ML 10 ML VIAL (for RAD DIAG) IV ONE (20:39)
--- NOTE | 2016-08-04 20:50 | RADHPO ---
EXAM DATE/TIME: 08/04/2016 20:11 [place] COMPARISON: No previous studies available for comparison. INDICATIONS : Abdominal pain. Diarrhea. IV CONTRAST: 100 cc Omnipaque 350 (iohexol) IV ORAL CONTRAST: Partial prescribed oral contrast ingested. RADIATION DOSE: 26.83 CTDIvol (mGy) MEDICAL HISTORY : Carcinoma, gastric. Hypertension. Cerebrovascular disease. SURGICAL HISTORY : Portion of stomach removed. ENCOUNTER: Initial ACUITY: 2 days PAIN SCALE: 7/10 LOCATION: Bilateral lower quadrant upper quadrant TECHNIQUE: Volumetric scanning of the abdomen and pelvis was performed. Using automated exposure control and ad justment of the mA and/or kV according to patient size, radiation dose was kept as low as reasonably achievable to obtain optimal diagnostic quality images. FINDINGS: Lung bases and minimal scarring. Mild fatty liver with multiple small hepatic cysts. Spleen, adrenals , kidneys and pancreas unremarkable. No gallstones or biliary ductal dilatation. Stomach is mildly di stended. There is some mild mural thickening of the left-sided transverse colon and left colon is characterist ic of a mild colitis. No free fluid or free air. No bowel obstruction. There is previous fusion across the lumbosacral junc tion. No acute bony abnormalities. CONCLUSION: 1. Mild mural thickening of the left colon is characteristic of a mild colitis. Colonic diverticula a re also present. 2. No obstruction, free fluid or free air. Previous fusion lower lumbar spine. Mild fatty liver. To Hanson MD on August 04, 2016 at 20:39 Board Certified Radiologist. This report was verified electronically.
[2016-08-04] MEDS ORDERED: METR-1 PO (21:18)
[2016-08-04] MEDS ORDERED: ZOFR4TAB PO (21:18)
[2016-08-04 21:30] VITALS: BP 169/91
== END 2016-08-04 21:33 | disposition home or self-care (01) ==
LOC: PHED 17:40
DX: K52.9 Noninfective gastroenteritis and colitis, unspecified (principal); F41.9 Anxiety disorder, unspecified; K57.92 Diverticulitis of intestine, part unspecified, without perforation or abscess without bleeding; F32.9 Major depressive disorder, single episode, unspecified; I10 Essential (primary) hypertension; Z86.73 Personal history of transient ischemic attack (TIA), and cerebral infarction without residual deficits; Z85.028 Personal history of other malignant neoplasm of stomach; Z79.899 Other long term (current) drug therapy; Z87.891 Personal history of nicotine dependence
CPT/HCPCS: 74177; 80053; 81001; 85025; 96361; 96374; 96375; 99284; J1170; J2405; J7030; Q9963; Q9967

== ENCOUNTER 2017-03-03 13:11 | Emergency (ER) | payer MEDICARE ==
[~2017-03-03] VITALS: Ht 182.9 cm; Wt 159.2 kg
[~2017-03-03 13:11] MED LIST changes: +METR-1 PO
[2017-03-03 13:18] VITALS: BP 189/89; PULSE 74; RESP 16; TEMP 98.4; O2SAT 96
[2017-03-03] MEDS ORDERED: HYDR12.57 PO (13:35)
[2017-03-03] MEDS ORDERED: PANT40TA3 PO (13:36)
[2017-03-03] MEDS ORDERED: EDAR40TA PO (13:36)
[2017-03-03] MEDS ORDERED: TERA5CAP3 PO (13:36)
[2017-03-03] MEDS ORDERED: DIAZEPAM 10 MG TAB PO ONE (14:00)
--- NOTE | 2017-03-03 14:03 | PD ---
HPI Chief Complaint: Anxiety Time Seen by Provider: 13:46 Travel History International Travel<30 days: No Contact w/Intl Traveler<30days: No Traveled to known affect area: No History of Present Illness HPI This 61-year-old male is complaining of anxiety. He says he has not been sleeping well for some time. He has a lot of medical issues. About 6 years ago he had removal of half the stomach for stomach cancer he's had follow-up which has been negative. He had a spinal fusion 20 years ago he has a lot of chronic pain. He is on oxycodone 30 mg 3 times a day. He has had anxiety for some time. He is very nervous and is on Ativan. He has not slept well for a long time. He has tried multiple sleeping pills. He is also seen a psychiatrist and has tried multiple medications from them without response. He has noted that his been a bit short of breath with minimal exertion recently. He has quite heavy and has been told he needs to lose weight. He has not had fever or chills. He has no history of heart disease. He stopped smoking 10 years ago PFSH Past Medical History Hx Anticoagulant Therapy: No Anxiety: Yes Depression: Yes Cancer: Yes (STOMACH ) Cardiovascular Problems: Yes (htn on meds) Cerebrovascular Accident: Yes (CVA) Diabetes: No Diminished Hearing: No Hypertension: Yes Insomnia: Yes Immunizations Current: Yes Past Surgical History Abdominal Surgery: Yes (STOMACH CANCER--PORTION OF STOMACH REMOVED 05/30) Other Surgery: Yes (spinal stenosis august 2015) Social History Alcohol Use: Yes (occasionally ) Tobacco Use: No (quit 10 years ago, smoked for 30 years) Substance Use: No Allergies-Medications (Allergen,Severity, Reaction): Coded Allergies: No Known Allergies (Unverified Allergy, Unknown, 03/03/17) Reported Meds & Prescriptions Reported Meds & Active Scripts Active Reported Edarbi (Azilsartan) 40 Mg Tab 40 Mg PO DAILY Terazosin (Terazosin HCl) 5 Mg Cap 5 Mg PO HS Pantoprazole (Pantoprazole Sodium) 40 Mg Tab 40 Mg PO DAILY Hydrochlorothiazide 12.5 Mg Cap 12.5 Mg PO DAILY Zoloft (Sertraline HCl) 50 Mg Tab 150 Mg PO DAILY Losartan (Losartan Potassium) 100 Mg Tab 100 Mg PO DAILY Lorazepam 1 Mg Tab 2 Mg PO DAILY PRN Review of Systems General / Constitutional: No: Fever, Chills Eyes: No: Diploplia, Blurred Vision HENT: No: Headaches Cardiovascular: No: Chest Pain or Discomfort Respiratory: Positive: Shortness of Breath Gastrointestinal: No: Vomiting, Diarrhea Genitourinary: No: Urgency, Frequency Musculoskeletal: Positive: Myalgias Skin: No Rash Neurologic: Positive: Weakness Psychiatric: Positive: Anxiety Hematologic/Lymphatic: No: Easy Bruising Physical Exam Narrative GENERAL: Well-developed male somewhat obese SKIN: Focused skin assessment warm/dry. HEAD: Atraumatic. Normocephalic. EYES: Pupils equal and round. No scleral icterus. No injection or drainage. ENT: No nasal bleeding or discharge. Mucous membranes pink and moist. NECK: Trachea midline. No JVD. CARDIOVASCULAR: Regular rate and rhythm. No murmur appreciated. RESPIRATORY: No accessory muscle use. Clear to auscultation. Breath sounds equal bilaterally. GASTROINTESTINAL: Abdomen soft, non-tender, nondistended. Hepatic and splenic margins not palpable. MUSCULOSKELETAL: No obvious deformities. No clubbing. No cyanosis. No edema. NEUROLOGICAL: Awake and alert. No obvious cranial nerve deficits. Motor grossly within normal limits. Normal speech. PSYCHIATRIC: He does appear quite anxious mood and affect; insight and judgment normal. Data Data Last Documented VS Vital Signs Date Time Temp Pulse Resp B/P (MAP) Pulse Ox O2 Delivery O2 Flow Rate FiO2 03/03/17 13:18 98.4 74 16 189/89 (122) 96 Orders Orders Chest, Pa & Lat (03/03/17 ) Diazepam (Valium) (03/03/17 14:30) [facility] Medical Decision Making Medical Screen Exam Complete: Yes Emergency Medical Condition: Yes Medical Record Reviewed: Yes Differential Diagnosis Differential includes pneumonia, CHF, anxiety and insomnia Narrative Course Patient has multiple issues and has been seeing multiple doctors. Chest x-ray shows no change from 2014. Patient is stable for discharge I did give him Valium which seems to help a little bit Diagnosis Primary Impression: Anxiety Disposition: 01 DISCHARGE HOME Condition: Stable Terrell Yang MD Mar 03, 2017 14:03
--- NOTE | 2017-03-03 14:26 | RADRPT ---
EXAM DATE/TIME: 03/03/2017 14:06 [facility] COMPARISON: CHEST PA & LAT, January 19, 2014, 18:46. INDICATIONS : Short of breath, back pain, anxiety. MEDICAL HISTORY : Hypertension. Carcinoma, gastric. CVA. Former smoker. SURGICAL HISTORY : Fusion, lumbar. Partial gastrectomy. Right knee arthroscopy. ENCOUNTER: Initial ACUITY: 3 days PAIN SCORE: 0/10 LOCATION: chest FINDINGS: The heart is mildly enlarged. There are chronic interstitial changes. Lungs otherwise clear. The osse ous structures are intact. The exam is similar to previous. CONCLUSION: 1. Cardiomegaly. No acute abnormality identified. 2. Mild degenerative changes in the thoracic spine. Alonzo Lara MD on March 03, 2017 at 14:23 Board Certified Radiologist. This report was verified electronically.
[2017-03-03] MEDS ORDERED: DIAZEPAM 5 MG TAB PO ONE (14:30)
[2017-03-03 14:59] VITALS: BP 123/73; PULSE 79; RESP 16; O2SAT 95
== END 2017-03-03 15:08 | disposition home or self-care (01) ==
LOC: PHED 13:11
DX: F41.9 Anxiety disorder, unspecified (principal); R06.02 Shortness of breath; I10 Essential (primary) hypertension; Z87.891 Personal history of nicotine dependence
CPT/HCPCS: 71020; 99283

== ENCOUNTER 2017-03-12 23:34 | Emergency (ER) | payer MEDICARE ==
[~2017-03-12] VITALS: Ht 182.9 cm; Wt 154.5 kg
[~2017-03-12 23:34] MED LIST changes: +EDAR40TA PO; +HYDR12.57 PO; -METR-1 PO; -OXYC15TA PO; +PANT40TA3 PO; -SERO25TA PO; -TAMS5CAP PO; +TERA5CAP3 PO; -ZOFR4TAB PO
[2017-03-12 23:37] VITALS: BP 140/87; PULSE 100; TEMP 97.8; O2SAT 95
[2017-03-12] MEDS ORDERED: OXYC30TA PO (23:53)
[2017-03-12] MEDS ORDERED: ASPI-516 CHEW (23:54)
[2017-03-13] MEDS ORDERED: SODIUM CHLORIDE 0.9% FLUSH 10 ML FLUSH IVF PRN (00:30)
[2017-03-13] MEDS ORDERED: DIAZEPAM 5 MG TAB PO ONE (00:30)
[2017-03-13 00:49] VITALS: O2SAT 94
--- NOTE | 2017-03-13 00:53 | PD ---
HPI Chief Complaint: Respiratory Symptoms Time Seen by Provider: 23:39 Travel History International Travel<30 days: No Contact w/Intl Traveler<30days: No Traveled to known affect area: No History of Present Illness HPI 61-year-old male presents to the emergency department complaining of shortness of breath for 2 days and restlessness in his legs. Patient is been seen for this before and has chronic anxiety. Patient recently evaluated for sleep apnea and is waiting to have a CPAP machine delivered. Patient does not report any lower extremity pain or swelling. No recent long distance travel protracted bedrest her surgical procedure. No chest pain no pleuritic chest pain no dyspnea at rest no orthopnea or PND but has noted dyspnea on exertion. No fever no chills no nausea no vomiting. Patient was just seen last week for same complaint and given Valium with improvement of his symptoms. PFSH Past Medical History Hx Anticoagulant Therapy: No Anxiety: Yes Depression: Yes Cancer: Yes (STOMACH ) Cardiovascular Problems: Yes (htn on meds) Cerebrovascular Accident: Yes (CVA) Diabetes: No Diminished Hearing: No Hypertension: Yes Insomnia: Yes Immunizations Current: Yes Tetanus Vaccination: > 5 Years Influenza Vaccination: No Past Surgical History Abdominal Surgery: Yes (STOMACH CANCER--PORTION OF STOMACH REMOVED 05/30) Other Surgery: Yes (spinal stenosis august 2015) Social History Alcohol Use: Yes (occasionally ) Tobacco Use: No (quit 10 years ago, smoked for 30 years) Substance Use: No Allergies-Medications (Allergen,Severity, Reaction): Coded Allergies: No Known Allergies (Unverified Allergy, Unknown, 03/12/17) Reported Meds & Prescriptions Reported Meds & Active Scripts Active Reported Aspirin 81 Mg Chew 81 Mg CHEW DAILY Oxycodone (Oxycodone HCl) 30 Mg Tab 30 Mg PO Q6H PRN Edarbi (Azilsartan) 40 Mg Tab 40 Mg PO DAILY Terazosin (Terazosin HCl) 5 Mg Cap 5 Mg PO HS Pantoprazole (Pantoprazole Sodium) 40 Mg Tab 40 Mg PO DAILY Hydrochlorothiazide 12.5 Mg Cap 12.5 Mg PO DAILY Zoloft (Sertraline HCl) 50 Mg Tab 150 Mg PO DAILY Losartan (Losartan Potassium) 100 Mg Tab 100 Mg PO DAILY Lorazepam 1 Mg Tab 2 Mg PO DAILY PRN Review of Systems Except as stated in HPI: all other systems reviewed are Neg General / Constitutional: No: Fever, Chills HENT: No: Congestion Cardiovascular: No: Chest Pain or Discomfort, Diaphoresis, Syncope Respiratory: Positive: Shortness of Breath, No: Cough, Wheezing, Orthopnea, Pleuritic Pain Gastrointestinal: No: Nausea, Vomiting Genitourinary: No: Urgency, Frequency, Dysuria Musculoskeletal: No: Myalgias, Arthralgias, Edema Skin: No Rash Neurologic: No: Weakness Psychiatric: No: Anxiety Hematologic/Lymphatic: No: Lymph Node Enlargement Physical Exam Narrative GENERAL: Well-developed well-nourished male in no acute distress no respiratory distress SKIN: Warm and dry. HEAD: Atraumatic. Normocephalic. EYES: Pupils equal and round. No scleral icterus. No injection or drainage. ENT: No nasal bleeding or discharge. Mucous membranes pink and moist. NECK: Trachea midline. No JVD. CARDIOVASCULAR: Regular rate and rhythm. RESPIRATORY: No accessory muscle use. Clear to auscultation. Breath sounds equal bilaterally. GASTROINTESTINAL: Abdomen soft, non-tender, nondistended. Hepatic and splenic margins not palpable. MUSCULOSKELETAL: Extremities without clubbing, cyanosis, or edema. No obvious deformities. NEUROLOGICAL: Awake and alert. No obvious cranial nerve deficits. Motor grossly within normal limits. Five out of 5 muscle strength in the arms and legs. Normal speech. PSYCHIATRIC: Appropriate mood and affect; insight and judgment normal. Data Data Last Documented VS Vital Signs Date Time Temp Pulse Resp B/P (MAP) Pulse Ox O2 Delivery O2 Flow Rate FiO2 03/13/17 00:49 94 Room Air 03/12/17 23:37 97.8 100 Orders Orders Complete Blood Count With Diff (03/13/17:29) Basic Metabolic Panel (Bmp) (03/13/17:29) B-Type Natriuretic Peptide (03/13/17:) Act Partial Throm Time (Ptt) (03/13/17:) Prothrombin Time / Inr (Pt) (03/13/17:) Magnesium (Mg) (03/13/17:29) Ckmb (Isoenzyme) Profile (03/13/17:) Troponin I (03/13/17:) Urinalysis - C+S If Indicated (03/13/17:) Iv Access Insert/Monitor (12/23/17 00:29) Electrocardiogram (03/13/17 00:29) Ecg Monitoring (03/13/17 00:29) Oximetry (03/13/17 00:29) Oxygen Administration (03/13/17 00:29) Chest, Single Ap (03/13/17 00:29) Sodium Chloride 0.9% Flush (Ns Flush) (03/13/17 00:30) Diazepam (Valium) (03/13/17 00:30) Ketorolac Inj (Toradol Inj) (03/13/17 01:45) Furosemide Inj (Lasix Inj) (03/13/17 02:15) Ed Discharge Order (03/13/17 02:17) Labs Laboratory Tests Test 03/13/17 00:42 03/13/17 01:42 White Blood Count 6.6 TH/MM3 Red Blood Count 5.44 MIL/MM3 Hemoglobin 14.3 GM/DL Hematocrit 45.4 % Mean Corpuscular Volume 83.3 FL Mean Corpuscular Hemoglobin 26.2 PG Mean Corpuscular Hemoglobin Concent 31.4 % Red Cell Distribution Width 15.1 % Platelet Count 200 TH/MM3 Mean Platelet Volume 8.6 FL Neutrophils (%) (Auto) 63.8 % Lymphocytes (%) (Auto) 19.5 % Monocytes (%) (Auto) 11.7 % Eosinophils (%) (Auto) 1.3 % Basophils (%) (Auto) 3.7 % Neutrophils # (Auto) 4.2 TH/MM3 Lymphocytes # (Auto) 1.3 TH/MM3 Monocytes # (Auto) 0.8 TH/MM3 Eosinophils # (Auto) 0.1 TH/MM3 Basophils # (Auto) 0.2 TH/MM3 CBC Comment DIFF FINAL Differential Comment Prothrombin Time 10.3 SEC Prothromb Time International Ratio 1.0 RATIO Activated Partial Thromboplast Time 32.5 SEC Blood Urea Nitrogen 14 MG/DL Creatinine 0.87 MG/DL Random Glucose 66 MG/DL Calcium Level 9.0 MG/DL Magnesium Level 2.1 MG/DL Sodium Level 138 MEQ/L Potassium Level 3.7 MEQ/L Chloride Level 101 MEQ/L Carbon Dioxide Level 31.8 MEQ/L Anion Gap 5 MEQ/L Estimat Glomerular Filtration Rate 89 ML/MIN Total Creatine Kinase 89 U/L Troponin I LESS THAN 0.02 NG/ML B-Type Natriuretic Peptide 13 PG/ML Urine Color YELLOW Urine Turbidity CLEAR Urine pH 6.0 Urine Specific [place] 1.015 Urine Protein NEG mg/dL Urine Glucose (UA) NEG mg/dL Urine Ketones NEG mg/dL Urine Occult Blood SMALL Urine Nitrite NEG Urine Bilirubin NEG Urine Leukocyte Esterase NEG Urine RBC 0-3 /hpf Urine WBC 0-2 /hpf Urine Squamous Epithelial Cells 0-5 /hpf Urine Bacteria NONE /hpf Microscopic Urinalysis Comment CULT NOT INDICATED MDM Medical Decision Making Medical Screen Exam Complete: Yes Emergency Medical Condition: Yes Medical Record Reviewed: Yes Interpretation(s) EKG: Normal sinus rhythm rate [address] elevation or injury pattern or ectopy noted Last Impressions Chest X-Ray 03/13/17 0029 Signed Impressions: Service Date/Time: Monday, March 13, 2017 00:47 - CONCLUSION: Mild diffuse interstitial prominence. Taj Layne MD CBC & BMP Diagram 03/13/17 00:42 Calcium Level 9.0, Magnesium Level 2.1 Differential Diagnosis dyspnea, copd, chf, pe, anxiety, metabolic disturbance Narrative Course Patient placed on gambling monitor IV access obtained specimens collected and sent for resulting EKG performed which shows no acute ST elevation or injury pattern Patient rating patiently for results and for agitation given Valium 5 mg by mouth states responded well to Valium last visit Chest x-ray shows interstitial prominence with cardiomegaly administered Lasix 40 mg IV times one dose Cardiac enzymes resulted CK troponin I are within normal limits and BNP is not elevated Patient identified to have hyperglycemia given oral potassium replacement with oral juice and wyatt crackers and appears clinically improved Patient stable for outpatient management Diagnosis Primary Impression: Dyspnea Additional Impressions: H/O anxiety state Hypoglycemia Referrals: Primary Care Physician call for appointment Patient Instructions: General Instructions Additional Instructions: Follow-up with primary care provider Return to the emergency department for any concerns change condition Med/Other Pt SpecificInfo: Prescription(s) given Scripts Furosemide (Lasix) 20 Mg Tab 20 MG PO DAILY for 3 Days, #3 TAB 0 Refills Prov: Lexi Otto MD 03/13/17 Disposition: 01 DISCHARGE HOME Condition: Stable Lexi Otto MD Mar 13, 2017 00:53
[2017-03-13 00:54] LABS: AUTOMATED NEUTROPHIL # 4.2 TH/MM3 (1.8-7.7); BASOPHIL # 0.2 TH/MM3 (0-0.2); BASOPHIL % 3.7 % (0.0-2.0); EOSINOPHIL # 0.1 TH/MM3 (0-0.4); EOSINOPHIL % 1.3 % (0.0-4.0); HEMATOCRIT 45.4 % (39.0-51.0); HEMOGLOBIN 14.3 GM/DL (13.0-17.0); LYMPH % 19.5 % (9.0-44.0); LYMPHOCYTE # 1.3 TH/MM3 (1.0-4.8); MEAN CELL VOLUME 83.3 FL (80.0-100.0); MEAN CORPUSCULAR HEMOGLOBIN 26.2 PG (27.0-34.0); MEAN CORPUSCULAR HGB CONC 31.4 % (32.0-36.0); MEAN PLATELET VOLUME 8.6 FL (7.0-11.0); MONO % 11.7 % (0.0-8.0); MONOCYTE # 0.8 TH/MM3 (0-0.9); NEUT % 63.8 % (16.0-70.0); PLATELET COUNT 200 TH/MM3 (150-450); RED BLOOD COUNT 5.44 MIL/MM3 (4.50-5.90); RED CELL DISTRIBUTION WIDTH 15.1 % (11.6-17.2); WHITE BLOOD COUNT 6.6 TH/MM3 (4.0-11.0)
[2017-03-13 01:03] LABS: CHLORIDE 101 MEQ/L (98-107); SODIUM (NA) 138 MEQ/L (136-145)
--- NOTE | 2017-03-13 01:04 | RADRPT ---
EXAM DATE/TIME: 03/13/2017 00:47 [facility] COMPARISON: CHEST PA & LAT, January 19, 2014, 18:46. CT ABDOMEN & PELVIS W CONTRAST, August 04, 2016, 20:11. CHEST PA & LAT, March 03, 2017, 14:06. INDICATIONS : Shortness of breath. MEDICAL HISTORY : Hypertension. Carcinoma, gastric. CVA. Former smoker. SURGICAL HISTORY : Fusion, lumbar. Partial gastrectomy. Right knee arthroscopy ENCOUNTER: Initial ACUITY: 2 days PAIN SCORE: 0/10 LOCATION: Bilateral chest FINDINGS: Slight diffuse reticulonodular interstitial prominence. Stable prominence of epicardial fat. No conso lidative infiltrate or significant effusion. CONCLUSION: Mild diffuse interstitial prominence. Taj Layne MD on March 13, 2017 at 1:00 Board Certified Radiologist. This report was verified electronically.
[2017-03-13 01:06] LABS: BICARBONATE 31.8 MEQ/L (21.0-32.0); BLOOD UREA NITROGEN 14 MG/DL (7-18); GLUCOSE,RANDOM 66 MG/DL (74-106); MAGNESIUM 2.1 MG/DL (1.5-2.5)
[2017-03-13 01:07] LABS: PROTHROMBIN TIME - PATIENT 10.3 SEC (9.8-11.6)
[2017-03-13 01:09] LABS: CREATININE 0.87 MG/DL (0.60-1.30); GLOMERULAR FILTRATION RATE 89 ML/MIN (>89)
[2017-03-13 01:14] LABS: TROPONIN I LESS THAN 0.02 NG/ML (0.02-0.05)
[2017-03-13] MEDS ORDERED: KETOROLAC TROMETHAMINE 30 MG/ML (IVP) VIAL IV PUSH ONE (01:45)
[2017-03-13 01:53] LABS: BILIRUBIN, URINE NEG (NEG); BLOOD, URINE SMALL (NEG); GLUCOSE,URINE NEG (NEG); KETONE, URINE NEG (NEG); NITRITE,URINE NEG (NEG); URINE LEUKOCYTE ESTERASE NEG (NEG)
[2017-03-13 01:59] LABS: URINE COLOR YELLOW (YELLW/STRAW)
[2017-03-13 02:00] VITALS: BP 175/88; PULSE 86; RESP 16; O2SAT 96
[2017-03-13 02:00] LABS: RBC, URINE 0-3 /hpf (0-3); SQUAMOUS EPITHELIAL CELL URINE 0-5 /hpf (0-5); WBC, URINE 0-2 /hpf (0-5)
[2017-03-13] MEDS ORDERED: FUROSEMIDE 40 MG/4 ML VIAL IV PUSH ONE (02:15)
[2017-03-13] MEDS ORDERED: FURO1TAB62 PO (02:20)
--- NOTE | 2017-03-15 09:32 | EKG ---
Date Performed: 03/13/2017 Time Performed: 00:42:21 PTAGE: 61 years EKG: Sinus rhythm WITH SINUS ARRHYTHMIA NONSPECIFIC T-WAVE ABNORMALITY BORDERLINE ECG PREVIOUS TRACING : 01/19/2014 21.51 Compared to prior tracing no significant change DOCTOR: Sandra Portillo Interpretating Date/Time 03/15/2017 09:31:42
== END 2017-03-13 02:31 | disposition home or self-care (01) ==
LOC: PHED 23:34
DX: R06.00 Dyspnea, unspecified (principal); R45.1 Restlessness and agitation; I49.8 Other specified cardiac arrhythmias; R94.31 Abnormal electrocardiogram [ECG] [EKG]; F41.9 Anxiety disorder, unspecified; F32.9 Major depressive disorder, single episode, unspecified; I10 Essential (primary) hypertension; G47.00 Insomnia, unspecified; Z86.73 Personal history of transient ischemic attack (TIA), and cerebral infarction without residual deficits
CPT/HCPCS: 71010; 80048; 81001; 82550; 83735; 83880; 84484; 85025; 85610; 85730; 93005; 96374; 96375; 99285; J1885; J1940